=== PATIENT | female | born 1985 | race Caucasian/White ===

== ENCOUNTER 2023-06-14 08:52 | Emergency (ER) | payer OTHER, SELFPAY ==
--- NOTE | ~2023-06-14 | CT_ITS ---
EXAMINATION: CT LUMBAR SPINE CLINICAL INFORMATION: Urinary retention. Low back pain. Left lower extremity numbness. COMPARISON: None available. TECHNIQUE: Contiguous axial noncontrast CT scan images of the lumbar spine obtained. Sagittal and coronal reformatted images also obtained. This CT examination was performed using dose optimization techniques as appropriate, variously including the following: *Automated exposure control *Adjustment of mA and/or kV according to patient size (this includes techniques or standardized protocols for targeted exams where dose is matched to indication/reason for exam; i.e. extremities or head) *Use of iterative reconstruction technique DLP: 275 mGy-cm FINDINGS: The vertebral bodies are normally aligned. The bone mineralization is normal. There is no fracture. There is an apparent large left sided L5-S1 disc protrusion/herniation likely displacing the S1 nerve root with moderate left neuroforaminal narrowing encroaching on the L5 nerve root. The remaining disc levels are within normal limits. The soft tissues are unremarkable. The visualized intra-abdominal structures are unremarkable. There is free fluid within the pelvis. CT/CT lumbar spine w IV con IMPRESSION: Large left-sided L5-S1 disc protrusion/herniation likely displacing the S1 nerve root and encroaching on the L5 nerve root. Free fluid within the pelvis of uncertain significance.
--- NOTE | ~2023-06-14 | CT_ITS ---
EXAMINATION: CT CERVICAL SPINE WITHOUT CONTRAST CLINICAL INFORMATION: Tingling down left upper extremity. COMPARISON: None available. TECHNIQUE: Contiguous axial noncontrast CT scan images of the cervical spine obtained. Sagittal and coronal reformatted images also obtained. This CT examination was performed using dose optimization techniques as appropriate, variously including the following: *Automated exposure control *Adjustment of mA and/or kV according to patient size (this includes techniques or standardized protocols for targeted exams where dose is matched to indication/reason for exam; i.e. extremities or head) *Use of iterative reconstruction technique DLP: 259 mGy-cm FINDINGS: There is straightening of the expected cervical spine curvature. The disc spaces are maintained. The spinal canal and neuroforamina are patent. The bone mineralization is normal. There is no fracture. Soft tissues are unremarkable. The visualized upper lung butler are clear. CT/CT cervical spine wo IV con IMPRESSION: Straightening of the expected cervical spine curvature of uncertain significance. No other significant abnormality identified. Fleischner guidelines were followed.
[2023-06-14 09:24] VITALS: BP 95/64; PULSE 83; RESP 18; TEMP 36; O2SAT 100; BMI 22.5
[2023-06-14 10:24] LABS: MANUAL DIFF FLAG NO
[2023-06-14 10:28] LABS: Basophils Percent Auto 0.2 % (0-2); Eosinophils Absolute Auto 0.1 X10*3/uL (0.0-0.4); Eosinophils Percent Auto 1.5 % (0-4); Hematocrit 40.1 % (37.0-47.0); Imm Gran Abs Auto 0.01 X10*3/uL (0.00-0.03); Imm Gran Pct Auto 0.2 % (0.0-0.4); Lymphocytes Percent Auto 20.9 % (20-40); Mean Corpuscular HGB Conc 32.4 g/dl (31.0-35.0); Mean Corpuscular Hemoglobin 30.4 pg (27.0-33.0); Mean Corpuscular Volume 93.9 fL (80.0-98.0); Mean Platelet Volume 10.1 fL (9.4-12.3); Monocytes Absolute Auto 0.3 X10*3/uL (0.1-1.2); Monocytes Percent Auto 6.3 % (2-11); Neutrophils Absolute Auto 3.4 x10*3/uL (2.0-8.3); Neutrophils Percent Auto 70.9 % (45-73); Platelet Count 226 X10*3/uL (160-400); Red Blood Count 4.27 X10*6/uL (4.20-5.50); Red Cell Distribution Width 11.3 % (11.0-16.0); White Blood Count 4.8 X10*3/uL (4.8-10.8)
--- NOTE | 2023-06-14 10:35 | ED.GENADULT ---
HPI - General Adult General Chief complaint: General Medical Stated complaint: Numbness & pain left leg Time Seen by Provider: 06/14/23 09:57 Source: patient Mode of arrival: ambulatory Limitations: no limitations History of Present Illness HPI narrative: 37 year old female with pmhx significant for hip dysplasia, L5-S1 disc herniation, and chronic low back pain presents to the ED today with complaint of acute on chronic low back pain x4 days. Back pain to left lumbar area with radiation into the lateral left thigh extending to the toes. Pain is exacerbated with movement. She now reports numbness down her left leg that was not present prior to 4 days ago. Able to ambulate with slight limp. Admits to receiving corticosteroid injections for this in the past however these were discontinued some time ago. Endorses slight tingling sensation down LUE that began this morning along with difficulty urinating x 2 days. States it takes her a while to initiate urine stream however is eventually able to urine. Denies feeling of incomplete bladder emptying. Denies ivdu. Denies trauma/injury/fall. Denies fever, chills, HERRERA, neck pain, cp, sob, n/v, abd pain, flank pain, dysuria, hematuria, weakness of extremities, saddle anesthesia, Related Data Previous Rx's Medication Instructions Recorded lidocaine 5 % topical patch 1 patch topical DAILY #15 ea 06/14/23 (Lidoderm) prednisone 50 mg tablet 50 mg PO DAILY 5 days #5 tabs 06/14/23 Allergies Allergy/AdvReac Type Severity Reaction Status Date / Time No Known Allergies Allergy Verified 06/14/23 10:46 Review of Systems Review of Systems: Constitutional: No fever, chills, fatigue, night sweats, weight changes ENT/Mouth: No ear pain, hearing loss, nasal congestion, sinus pain, rhinorrhea, sore throat Eyes: No eye pain, swelling, redness, vision changes, discharge Cardio: No chest pain, palpitations, TAMAYO, orthopnea, peripheral edema Pulm: No SOB, cough, sputum, wheezing, dyspnea, hemoptysis GI: No nausea, vomiting, hematemesis, abdominal pain, diarrhea, constipation, hematochezia, melena : No irregular bleeding, dysuria, frequency, urgency, hesitancy, hematuria, flank pain, urinary flow changes, urinary incontinence or retention MSK: +back pain, No neck pain, joint pain, myalgias Skin: No lesions, rashes Neuro: No weakness, +numbness, No paresthesias, LOC, dizziness, headache All other systems reviewed and are negative. FORMERLY [facility], 1928–1983 Past Medical History Attestation statement: The following information was validated with the patient. Source: old records reviewed and nursing notes reviewed Social History Social History Advance Directives: No Physical Exam ED Vital Signs: Vital Signs - 24 hr 06/14/23 14:49 Temperature 98.7 F Pulse Rate 76 Respiratory Rate 14 Blood Pressure 94/59 L Pulse Oximetry 99 Oxygen Delivery Method Room Air BMI result Body Mass Index 22.5 vital signs stable Const General: cooperative, healthy appearing, comfortable, no acute distress, alert and awake Orientation/consciousness: patient oriented x3 Limitations: no limitations HENMT Head: Yes normal to inspection Ears: hearing grossly normal bilaterally Eyes General: appearance normal, both eyes and all related structures Conjunctivae: conjunctivae normal Sclerae: sclerae normal Pupils: Equal, round and reactive pupils present Neck Neck: Yes normal visual inspection, Yes full ROM, Yes no lymphadenopathy and Yes no meningeal signs Resp Effort & Inspection: normal respiratory effort and able to speak in complete sentences Auscultation: clear to auscultation bilaterally Cardio Rate: regular rate Rhythm: regular rhythm Peripheral pulses: radial pulses present, posterior tibial pulses present and dorsalis pedis present GI Other: + rectal exam performed with Oly RN in room to building operator. Normal rectal sphincter tone noted Inspection: Yes normal to inspection Palpation (GI): Soft to palpation, nontender and no guarding Auscultation: normal bowel sounds General: Yes no CVA tenderness Back/Spine/Pelvis Other: + midline lumbar spinous tenderness. + left lumbar paraspinal muscle tenderness. no step off deformity. No midline cervical or thoracic spinous tenderness. Back: no CVA tenderness Skin General skin exam: no rashes or lesions noted Neuro Other: Strength 5/5 intact to RLE, 4/5 to LLE.? No saddle anesthesia. Sensation intact to light touch.?NV intact distally.?Gait antalgic secondary to discomfort. General: patient oriented x3, moves all extremities and no meningeal signs Cranial nerves: Yes Equal, round and reactive pupils present Deep tendon reflexes (DTR's): Right patellar reflex intensity grade: 2+ and Left patellar reflex intensity grade: 2+ Plantar Reflex Responses: downgoing: bilateral Extrem Other: + full rom intact to right and left hips. General: Yes normal to inspection and Yes full ROM Course Course Course Narrative: cbc without leukocytosis or anemia > infection unlikely. chemistry without acute electrolyte abnormality requiring intervention. sed rate and crp wnl. Urine negative for or infection. awaiting ct. 1516-- ct cervical spine unremarkable. ct lumbar spine showing left sided L5-S1 disc protrusion/ herniation w/ possible displacement of the S1 nerve root, encroaching on the L5 nerve root. > discussed these findings with patient. states she is aware of this and has seen specialists in the past for injections. > obtained patient's verbal consent and rectal exam performed with Oly RN in room to building operator. Normal rectal sphincter tone noted > less likely cauda equina. 1543-- post void residual of 0 > no urinary retention supporting low suspicion of cauda equina. Discussed case with my attending physician, Dr. Dumont, who agrees that the patient may be discharged home with a 5 day course of prednisone and strict neurospine follow-up > referral will be provided. > informed patient of work up results and plan. Patient is ambulating with steady gait. Has urinated without difficulty in ED. She has remained stable throughout ED visit today. Discussed strict return precautions. All questions answered at this time. Patient is agreeable with disposition and stable for discharge. Medications Administered Discontinued Medications Generic Name Dose Route Start Last Admin Trade Name Freq PRN Reason Stop Dose Admin Iohexol 100 ml 06/14/23 13:37 06/14/23 13:37 Iohexol 350 Mg/Ml 100 Ml Infus..Btl IV 06/14/23 13:38 85 ml ONCE ONE Administration Lidocaine 1 patch 06/14/23 10:51 06/14/23 13:02 Lidocaine 4 % Patch Adh..Patch TRANSDERMA 06/14/23 10:52 1 patch ONCE ONE Administration Protocol Medical Decision Making Medical Decision Making MDM Narrative: 37 year old female with pmhx significant for hip dysplasia, L5-S1 disc herniation, and chronic low back pain presents to the ED today with complaint of acute on chronic low back pain x4 days. Vital signs are stable. BP soft however she is sleeping in bed. Nontoxic appearing and in NAD. no CVAT b/l. midline lumbar spinous tenderness and left lumbar paraspinal muscle tenderness. no step off deformity. No midline cervical or thoracic spinous tenderness. full rom to spine intact. Strength 5/5 intact to RLE, 4/5 to LLE.? No saddle anesthesia. Sensation intact to light touch.?NV intact distally.?Gait antalgic secondary to discomfort. Clinical concern for disc herniation/protrusion, fracture, subluxation, msk sprain/strain, cervical radiculopathy, sciatica, neuropathy, UTI, nephrolithiasis. Unlikely cord compression, cauda equina, or epidural abscess. Plan for basic labs, inflammatory markers, UA, pain control, ct scans, and reevaluation. Differential Diagnosis Differential Diagnoses: The differential diagnosis associated with the presentation includes As above. Admission/Observation Not indicated. Lab Data MDM Lab Attestation statement: I reviewed the patient's lab results. as above. 06/14/23 10:20 06/14/23 10:20 Labs: Lab Results 06/14/23 06/14/23 Range/Units 10:20 10:38 WBC 4.8 (4.8-10.8) X10*3/uL RBC 4.27 (4.20-5.50) X10*6/uL Hgb 13.0 (12.0-16.0) g/dl Hct 40.1 (37.0-47.0) % MCV 93.9 (80.0-98.0) fL MCH 30.4 (27.0-33.0) pg MCHC 32.4 (31.0-35.0) g/dl RDW 11.3 (11.0-16.0) % Plt Count 226 (160-400) X10*3/uL MPV 10.1 (9.4-12.3) fL Immature Gran % (Auto) 0.2 (0.0-0.4) % Neut % (Auto) 70.9 (45-73) % Lymph % (Auto) 20.9 (20-40) % [place] % (Auto) 6.3 (2-11) % Eos % (Auto) 1.5 (0-4) % Baso % (Auto) 0.2 (0-2) % Lymph # (Auto) 1.0 L (1.2-4.9) X10*3/uL [place] # (Auto) 0.3 (0.1-1.2) X10*3/uL Eos # (Auto) 0.1 (0.0-0.4) X10*3/uL Baso # (Auto) 0.0 (0.0-0.2) X10*3/uL Abs Immat Gran (auto) 0.01 (0.00-0.03) X10*3/uL Absolute Neuts (auto) 3.4 (2.0-8.3) x10*3/uL Absolute Nucleated RBC 0.000 (0.0-0.012) X10*3/uL Nucleated RBC % (auto) 0.0 (0.0-0.2) /100WBC ESR 8 (0-20) MM/HR Sodium 139 (135-145) mmol/L Potassium 3.8 (3.3-5.1) mmol/L Chloride 107 (96-108) mmol/L Carbon Dioxide 25 (22-29) mmol/L Anion Gap 11 L (12-20) BUN 11 (9-16) mg/dL Creatinine 0.73 (0.5-1.4) mg/dL Estim Creat Clear Calc 85.0 Estimated GFR > 60 Random Glucose 69 (60-115) mg/dL Calcium 9.0 (8.4-10.2) mg/dL C-Reactive Protein < 0.10 (< or = 0.50) mg/dL Urine Color Yellow Urine Appearance Clear Urine pH 6.5 (5.0-9.0) Ur Specific [place] 1.015 (1.005-1.025) Urine Protein Negative (Neg-Trace) mg/dL Urine Glucose (UA) Negative (Negative) mg/dL Urine Ketones Negative (Negative) mg/dL Urine Blood Negative (Negative) Urine Nitrite Negative (Negative) Ur Leukocyte Esterase Trace H (Negative) Urine RBC 0-2 (0-2) /HPF Urine WBC 11-20 H (0-5) /HPF Ur Squamous Epith Cells 6-10 (0-2) /HPF Urine Bacteria None Seen (None Seen) Hyaline Casts 0-2 (0-2) /LPF Urine Test NEGATIVE (NEGATIVE) Independent Interpretation I performed an independent interpretation of an: CT Scan Interpretation: CT c spine without fracture or subluxation, agree with radiologist's interpretation. CT lumbar spine without acute fracture, agree with radiologist's interpretation. Radiology Impression Discussion of test interpretation with radiology: I have reviewed the radiologist's reading. Radiologist Impression: CT cervical spine wo IV con IMPRESSION: Straightening of the expected cervical spine curvature of uncertain significance. No other significant abnormality identified. Fleischner guidelines were followed. CT lumbar spine w IV con IMPRESSION: Large left-sided L5-S1 disc protrusion/herniation likely displacing the S1 nerve root and encroaching on the L5 nerve root. Free fluid within the pelvis of uncertain significance. External Record Review External record reviewed: Inpatient record Prescription Management I considered prescription management with: Pain Medication Chronic Conditions Patient?s care impacted by: Other (herniated disc) Critical Care Time Critical Care Time Critical Care Time: No Discharge Plan Discharge Clinical Impression: Lumbosacral disc herniation Patient Disposition: Home, Self-Care Instructions: Acute Low Back Pain (ED) Additional Instructions: Your labs today were normal. Your urine was negative for infection and . The CT of your neck did not reveal any fracture or disc herniation. The CT of your lower back shows known disc herniation of the L5 and S1 vertebra with encroachment on the left nerve root. Prednisone is a steroid that has been sent to her pharmacy. Take this as directed over the next 5 days to help with pain/inflammation. You have been given a referral to a spine doctor. Call them to make an appointment they will not call you. Lidoderm patches have been sent to your pharmacy. Uses as needed for pain/discomfort. Follow-up with your PCP as needed. If you develop worsening symptoms, have difficulty walking, are unable to control your bowel or bladder, or if you are unable to urinate please return to the emergency department. In the case of an emergency call 911. Prescriptions: New lidocaine [Lidoderm] 5 % adhesive patch,medicated 1 patch topical DAILY Qty: 15 0RF Rx Instructions: leave on most painful area for up to 12 hrs prednisone 50 mg tablet 50 mg PO DAILY 5 Days Qty: 5 0RF Referrals: Jaxon Rivera MD, PhD [Physician] - 5 days Stand Alone Forms: Work/School Release Interventions: ED Discharge Assessment Last Done: 06/14/23 15:55 Discharge Date/Time: 06/14/23 16:01
[2023-06-14 10:44] LABS: Anion Gap 11 (12-20); Blood Urea Nitrogen 11 mg/dL (9-16); Carbon Dioxide 25 mmol/L (22-29); Chloride 107 mmol/L (96-108); Estimated Glomerular Filt Rate > 60; Glucose Random 69 mg/dL (60-115); Potassium 3.8 mmol/L (3.3-5.1); Sodium 139 mmol/L (135-145)
[2023-06-14 11:01] LABS: Appearance Urine Clear; Color Urine Yellow; Glucose Urine UA Negative (Negative); Leukocyte Esterase Urine Trace (Negative); Nitrite Urine Negative (Negative); PH 6.5 (5.0-9.0); Specific Gravity - Urine 1.015 (1.005-1.025); UMIC TRIGGER UACC YES; Urine Blood Negative (Negative); Urine Ketones Negative (Negative); Urine Protein Negative (Neg-Trace)
[2023-06-14 11:02] LABS: UPreg QC Valid YES; Urine Pregnancy NEGATIVE (NEGATIVE)
[2023-06-14 11:06] LABS: Bacteria Urine None Seen (None Seen); Hyaline Casts Urine 0-2 /LPF (0-2); RBC Urine 0-2 /HPF (0-2); UACC Culture Trigger YES
[2023-06-14 11:26] LABS: C Reactive Protein < 0.10 mg/dL (< or = 0.50)
[2023-06-14 11:57] LABS: Erythrocyte Sedimentation Rate 8 MM/HR (0-20)
[2023-06-14 12:43] VITALS: BP 114/82; PULSE 64; RESP 14; TEMP 36.7; O2SAT 96
--- NOTE | 2023-06-14 12:44 | PC.NURSE ---
Patient resting on stretcher, respirations even and unlabored, skin pwd, alert and oriented x4. Pt verbalizes lower back pain continuing with no change in pain. Awaiting CT scan at this time, this RN placed 20g IV in LAC
[2023-06-14] MEDS: Lidocaine 4 % Patch ADH..PATCH 1 PATCH TRANSDERMA (13:02)
[2023-06-14] MEDS: iohexoL 350 MG/ML 100 ML INFUS..BTL IV (13:37)
--- NOTE | 2023-06-14 14:35 | PC.NURSE ---
Patient back from CT, resting comfortably on stretcher, offers no complaints to this RN at this time
[2023-06-14 14:49] VITALS: BP 94/59; PULSE 76; RESP 14; TEMP 37.1; O2SAT 99
--- NOTE | 2023-06-14 15:23 | PC.NURSE ---
Post void residual zero on bladder scan.
== END 2023-06-14 16:01 | disposition home or self-care (01) ==
PROVIDERS: Physician Assistant Medical; Emergency Provider Emergency Medicine Emergency Medical Services; PCP Internal Medicine
DX: K45.8 Other specified abdominal hernia without obstruction or gangrene (principal); R33.9 Retention of urine, unspecified; R20.0 Anesthesia of skin; M79.605 Pain in left leg; M54.50 Low back pain, unspecified; R51.9 Headache, unspecified; M54.2 Cervicalgia; Z79.899 Other long term (current) drug therapy
CPT/HCPCS: 36415; 51798; 72125; 72132; 80048; 81001; 81003; 81025; 85025; 85652; 86140; 87086; 87088; 87186; 99284; Q9967

== ENCOUNTER 2023-06-17 13:16 | Outpatient (AMB) | payer OTHER, SELFPAY ==
--- NOTE | 2023-06-17 13:39 | A.OFFVIS_ITS ---
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 Jung in follow-up today. She was in the emergency room 2 days ago. She is a patient who has been having on and off pain for the last 4-5 weeks going down her left leg but 2 days ago she fell an abrupt increase in the intensity of the pain. The pain was so severe that she has fallen a few times because she has been unable to stand or walk on her left leg. The pain radiates down the back of her leg into her calf going into her foot. She has weakness of her foot as well. There is tingling and numbness along the dorsum of the foot. No cauda equina symptoms. She has been tried on steroids, low-grade narcotics, muscle relaxers, ibuprofen, Tylenol with no significant improvement. She had been going to physical therapy before this recent flare up but it was not helping. She underwent a CT in the emergency room the other day showing what is suspected to be a herniated disc on the left at L5-S1. She came in to see us today with an urgent consultation. PMH: She is otherwise healthy Social hx: She does not smoke, drink alcohol or use drugs Medications: She has been on prednisone taper but has recently stopped that, Tylenol, ibuprofen Allergies: No drug allergies Physical exam: She has positive straight leg raise at about 10-15 degrees. She is very uncomfortable limping through the office grimacing with pain. She cannot sit on her left side. She has significant weakness of dorsiflexion and plantar flexion with an absent Achilles reflex on the left. Imaging review: Lumbar CT done at [place] shows what looks like a herniated disc fragment on the left at L5-S1. Impression: 37-year-old female presents with a 4-5 week history of left lumbar radiculopathy consistent with either L5 or S1 dermatome, who had a recent flare up 2 days ago with severe pain and what looks like a large herniated disc fragment in the lateral recess at L5-S1. She has weakness of her left foot as well as an absent Achilles reflex. She has been trying conservative treatment up to this point but obviously things are only escalating. I am going to send her for stat MRI because of the weakness of her foot in the absent reflex. Also, the MRI will give us a little more detail to help us intraoperatively. Cannot see if any of the fragment extends up behind the body of L5 or into the foramen. The limitations of CT necessitate the MRI. We will look at the MRI soon as it is done and coordinate for surgery. We briefly reviewed surgical indications, risks, benefits etc.. We will have a more detailed conversation once I have a chance to review her MRI with Dr. Rivera. Thank you for allowing us to care for your patient. The total time spent with this visit with this patient was 45 minutes reviewing history, physical exam, lumbar CT imaging review, and implementation of treatment plan or further diagnostic testing Niko Rivera MD,PhD [facility] Orders: Orders MR lumbar spine wo con Today M51.26 - Other intervertebral disc displacement, lumbar region Coding Level of Care Code New Pt Level 4 (95008) Diagnoses Lumbar disc herniation M51.26
== END 2023-06-17 14:03 | disposition home or self-care (01) ==
PROVIDERS: PCP Internal Medicine; Visit Provider Physician Assistant
DX: M51.26 Other intervertebral disc displacement, lumbar region (principal)
CPT/HCPCS: 99204

== ENCOUNTER → 2023-06-17 13:16 | Outpatient (BNVA) | payer OTHER, SELFPAY | PROVIDERS: PCP Internal Medicine; Visit Provider Physician Assistant | DX: M51.26 Other intervertebral disc displacement, lumbar region (principal) | CPT/HCPCS: 99202 ==

== ENCOUNTER 2023-07-07 08:58 | Day surgery (SDC) | payer OTHER, SELFPAY ==
[2023-06-28 11:09] VITALS: BMI 21.6
--- NOTE | 2023-06-30 12:13 | P.CONAN_ITS ---
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 (HPV) DNA test positive Intractable headache Lumbosacral radiculopathy Abnormal liver function tests Hydronephrosis Elevated LFTs Pyelonephritis Back pain Hx of transfusion of packed red blood cells Seizures Sepsis COVID-19 Jaundice Anemia G6P deficiency ([id number] deficiency) Numbness Surgical History Surgical History History of tubal ligation Hx of gynecological procedure Hx of section Social History Social History Are you a primary resident care assistant to a significant other at home: Yes Do you presently have visiting nurse or other home services: No Patient Tobacco Use Status: Never used Tobacco Meds Allergies Allergy/AdvReac Type Severity Reaction Status Date / Time doxycycline Allergy Unknown Verified 06/29/23 08:05 latex Allergy Rash Verified 06/28/23 10:33 Penicillins Allergy Unknown Verified 06/29/23 06:41 Exam Height,Weight and Vital Signs: Height 5 ft 2 in Weight 53.524 kg Pertinent Lab Results Pertinent Lab Results: Laboratory Tests 06/14/23 10:20 WBC 4.8 Hgb 13.0 Hct 40.1 Plt Count 226 Sodium 139 Potassium 3.8 Chloride 107 Carbon Dioxide 25 BUN 11 Creatinine 0.73 Assessment and Plan Assessment Anesthesia Assessment: Chart Reviewed Creatinine 0.73 Assessment and Plan Assessment Anesthesia Assessment: Chart Reviewed
[2023-07-07] VITALS (10 sets, daily range): BP systolic 94–115; BP diastolic 62–72; PULSE 64–88; RESP 12–16; TEMP 36.2–36.6; O2SAT 96–100; BMI 21.9
--- NOTE | ~2023-07-07 | FL_ITS ---
EXAMINATION: XR FLUOROSCOPY WITH IMAGES CLINICAL INFORMATION: L5-S1 microlumbar decompression. COMPARISON: None available. TECHNIQUE: Fluoroscopy Supervised By: Dr. Jaxon Rivera. Fluoroscopy Time: Less than 0.1 minute. Cumulative Dose: 0.919 mGy. DAP: 0.0159 Gycm2. Images: 1. FINDINGS: Single lateral image of lumbar spine demonstrate surgical instruments and probe projecting over the posterior lower lumbar spine FL/FL guidance in OR IMPRESSION: Fluoroscopy guidance for lumbar spine surgery.
--- NOTE | 2023-07-07 07:26 | MHC.SHP ---
Pre-Procedural Eval Section A Date of Service: 07/07/23 The patient is an INPATIENT: No Changes since office visit: No Cold of Flu in the past 2 weeks, No New Medical Problems, No Changes in Medication and No Patient answered all questions The History & Physical has been completed within 30 days and I have reviewed it.: No Section B Chief Complaint: Other intervertebral disc displacement, lumbar reg Allergies: Allergies Allergy/AdvReac Type Severity Reaction Status Date / Time doxycycline Allergy Unknown Verified 06/29/23 08:05 latex Allergy Rash Verified 06/28/23 10:33 Penicillins Allergy Unknown Verified 06/29/23 06:41 Review of Systems Sugical H&P ROS: Negative: Constitution, Cardiovascular, Respiratory, Neurological, Psychiatric, Hem-Onc, Allergic/Immunologic, Gastrointestinal, Genitourinary, Musculoskeletal, Integumentary, Endocrine and Eyes/Ears/Nose/Throat Exam Surgical H&P Exam: Not Evaluated: HEENT, Not Evaluated: Heart, Not Evaluated: Lungs, Not Evaluated: Extremities, Not Evaluated: Abdomen, Not Evaluated: Skin and Not Evaluated: Neurological Plan Diagnosis/Plan: Unchanged left L5-S1 microdiskectomy Time Spent With Patient Time: Total time managing care of this patient today __6__ minutes.
--- NOTE | 2023-07-07 10:11 | PC.NURSE ---
patient started to c/o itching to left arm above IV site, and scratching scalp. IV vancomycin stopped. Dr. Pacheco notified and at bedside. all consents obtained. Benadryl 25mg IV given as ordered.
--- NOTE | 2023-07-07 10:14 | HO.ANESPROP2 ---
[facility] Active Problems Active Problems: All Active Problems (Updated 06/29/23 @ 08:04 by Tressa Castaneda RN) Lumbar disc herniation (Acute) Past Medical History Medical History Cervical high risk human papillomavirus (HPV) DNA test positive Intractable headache Lumbosacral radiculopathy Abnormal liver function tests Hydronephrosis Elevated LFTs Pyelonephritis Back pain Hx of transfusion of packed red blood cells Seizures Sepsis COVID-19 Jaundice Anemia G6P deficiency (owerief-5-yolcwzaykwj deficiency) Numbness Functional capacity: independent ambulation Patient : No Family History Family history of problems with anesthesia: No Surgical History Surgical History History of tubal ligation Hx of gynecological procedure Hx of section History of Problems with Anesthesia: No Social History Social History Are you a primary health care attorney to a significant other at home: Yes Do you presently have visiting nurse or other home services: No Patient Tobacco Use Status: Never used Tobacco Use of substances other than those prescribed or required for medical reasons: No Advance Directives: No Advance Directives Information Provided: Yes Advance Directives on File: No Recently lost weight without trying: No Eating poorly because of decreased appetite: No Nutrition Risks: No Nutritional Risk Patient : No : No Poor oral hygiene: No Meds Allergies Allergy/AdvReac Type Severity Reaction Status Date / Time doxycycline Allergy Unknown Verified 06/29/23 08:05 latex Allergy Rash Verified 06/28/23 10:33 Penicillins Allergy Unknown Verified 06/29/23 06:41 Active Medications: Current Medications Vancomycin HCl 1,000 mg/ (Sodium Chloride) 270 mls @ 270 mls/hr IV PREOP ONE Stop: 07/07/23 10:15 Last Admin: 07/07/23 09:47 Dose: 270 mls/hr Exam Height,Weight and Vital Signs: Height 5 ft 2 in Weight 54.431 kg Last Vital Signs Temp 97.9 F 07/07/23 09:42 Pulse 77 07/07/23 09:42 Resp 16 07/07/23 09:42 BP 94/70 07/07/23 09:42 Pulse Ox 98 07/07/23 09:42 O2 Del Method Room Air 07/07/23 09:42 Airway Mallampati Class: I TM Dist: >3cm Neck ROM: Full Heart: RRR Lungs: CTA Assessment and Plan Assessment Anesthesia Assessment: Anesthesia Plan Discussed Final Anesthetic Review Family History of Problems with Anesthesia: No History of Problems with Anesthesia: No NPO: Yes ASA Class: II Final Preanesthetic Review: Meds/Allgs Chart Reviewed, Consent Obtained/Reviewed and Anes Risks/Benef Reviewed Patient Risk: Intermediate Procedure Risk: Intermediate Anesthetic Plan Anesthetic Plan: GA Disposition: Standard PACU
--- NOTE | 2023-07-07 11:40 | W.PM.OPN ---
Operative Note Operative Note Date of Service: 07/07/23 Narrative: Preoperative diagnosis: left S1 lumbar radiculopathy due to disc herniation Postoperative diagnosis: Same Procedure: left L5-S1 lumbar microdiskectomy with microscope Surgeon: Jaxon Rivera MD, PhD Senior Property Accountant: [place] patient's suffer from left leg pain and numbness due to a large extruded disc herniation L5-S1 compressing the left S1 nerve root. The patient was offered a lumbar microdiskectomy to decompress the nerve root. The procedure complications were explained. The patient was consented. The patient was brought to the operating room and endotracheally intubated. The patient was turned in a prone position on the Mundo frame. Prepping and draping was done followed by time-out. A mid lumbar incision was made followed by release of the paravertebral muscles on the left side to expose the L5-S1 interspace. An intraoperative x-rays obtained to confirm the correct level. The microscope was brought in. A L5 laminotomy was done followed by opening of the flavum ligament. The S1 nerve root was identified and retracted medially to expose the L5-S1 disc space. I could palpate a disc herniation medial from the S1 nerve root. An annulotomy was done and with a long therefore I was able to luxate and 1 over a very large disc fragment from on the day thecal sac and medial side of the S1 nerve root. This immediately led to a good decompression of the S1 nerve root.The disc space was inspected and any residual disc fragments were removed. Hemostasis was done. The microscope was removed. Marcaine was injected intramuscularly.The incision was closed in two layers. Steri-Strips used to approximate seizure. An op-site were taken there was used to cover the incision. All sponge and needle counts were correct. Patient was extubated and transported in stable condition to recovery room. this procedure was done with the aid of a physician metallurgical laboratory assistant who performed the initial exposure until the microscope was brought in and performed the closure of the incision. Anesthesia: General Blood loss: 10 mL Complications: None Specimen: None Surgical time: 45 min Disposition: Discharge home
--- NOTE | 2023-07-07 11:50 | PM.DS ---
DS: Providers Provider Date of Service: 07/07/23 Date of discharge: 07/07/23 Primary care physician: Darling Egan MD Admitting clinician: Jaxon Rivera DS: Diagnosis Discharge Diagnosis (1) Lumbar disc herniation: Status: Acute DS: Summary Time Attestation Discharge coordination time: Less than 30 minutes Quality: Safe Use of Opioids Does Pt have an Active Cancer Diagnosis on the Problem List?: No Quality: Stroke Does the patient have a stroke diagnosis?: No Physical Exam Vital Signs: Vital Signs: Last Vital Signs Temp 97.9 F 07/07/23 09:42 Pulse 77 07/07/23 09:42 Resp 16 07/07/23 09:42 BP 94/70 07/07/23 09:42 Pulse Ox 98 07/07/23 09:42 O2 Del Method Room Air 07/07/23 09:42 BMI result Body Mass Index 21.9 Discharge Plan Discharge Patient Disposition: Home, Self-Care Referrals: Darling Egan MD [Primary Care Provider] - 1 Week Discharge Medications: New oxycodone 5 mg tablet 5 mg PO Q4H PRN (Reason: pain) Qty: 20 0RF Rx Instructions: Partial Fill upon patient request. docusate sodium [Colace] 100 mg capsule 100 mg PO BID Qty: 20 0RF No Action lidocaine [Lidoderm] 5 % adhesive patch,medicated 1 patch topical DAILY Qty: 15 0RF Rx Instructions: leave on most painful area for up to 12 hrs Discharge Orders: Discharge Order (Routine); Ordered 07/07/23 Ordered By: Niko Treviño Diet: Advance to usual diet Activity on Discharge: As tolerated Activity Restrictions/Additional Instructions: After your spinal surgery we ask you to observe the following restrictions/guidelines: Activity: It is normal to feel some discomfort as you increase your activity, but that will improve with time. We ask you avoid heavy lifting or acitivities that cause pain. As a general rule, 8lbs is a safe limit for lifting right after surgery. Walk as much as you feel comfortable but not to exhaustion. You will feel extra tired the first few days after surgery. Stay well hydrated. It is OK to walk up and down stairs You may return to driving when you are off narcotics (such as vicodin, oxycodone, dilaudid, etc), and you are back to normal functional capacity. If you have any concerns please check with office before driving. Return to work is specific to each patient and each surgery, so please speak with your doctor/PA at first follow up. Please bring paperwork such as FMLA at that time if you need it filled out. Medications: For optimum pain control, it is best to start with a combination of 500 mg of Tylenol every 4 hours with 600 mg of Motrin every 8 hours, and use narcotics as needed in between for breakthrough pain. We will give you a short supply of narcotics after surgery (usually one weeks worth). If you need more please call the office but do not use more than prescribed. You will need to give our office 48 hours notice if you need narcotics refilled and we do not fill narcotics on weekends or evenings. If you are on a narcotic, it is a good idea to take a stool softener such as colace or senna to avoid constipation If you take blood thinner such as aspirin, Plavix, Coumadin, Effient, Eliquis etc for conditions such as Afib, DVT, Pulmonary embolus, coronary disease, stents etc please speak with your surgeon about specific details as to when you can resume these medications. You can resume NSAIDs on post op day 1 (eg: Motrin, Naproxen, etc). Follow up: Please call the office, , after surgery to arrange a 3 week follow up for wound check. Wound Care: You may remove your dressing on the first day after surgery. You may leave open to air. Please do not remove the steri strips underneath. they will fall off on their own in one week. IT IS NORMAL FOR THE WOUND TO OOZE OR BE BLOODY FOR A FEW DAYS AFTER SURGERY. IF THIS HAPPENS JUST PLACE NEW DRESSING OVER IT TO AVOID STAINING CLOTHES. You may shower on post op day # 1 We ask that you do not let the water soak the wound. If it does get wet, just towel dry lightly. Please do not scrub your incision or place any type of chemical/ointment on the wound. No tub baths, pools or jacuzzis for one month. If you have any leaking or redness from your wound, or fevers, please call office
== END 2023-07-07 14:15 | disposition home or self-care (01) ==
PROVIDERS: PCP Internal Medicine; Visit Provider Neurological Surgery
PROC: (CPT 63030; principal; 2023-07-07 15:40)
DX: M51.26 Other intervertebral disc displacement, lumbar region (principal); M51.16 Intervertebral disc disorders with radiculopathy, lumbar region; M79.605 Pain in left leg; R20.0 Anesthesia of skin; R20.2 Paresthesia of skin
CPT/HCPCS: 63030; J0131; J0736; J1100; J1200; J1596; J2250; J2405; J2704; J3010; J3370

== ENCOUNTER → 2023-07-07 08:58 | Outpatient (BNV) | payer OTHER, SELFPAY | PROVIDERS: PCP Internal Medicine; Visit Provider Neurological Surgery | DX: M51.26 Other intervertebral disc displacement, lumbar region (principal) | CPT/HCPCS: 63030; 99499 ==

== ENCOUNTER 2023-08-02 15:24 | Outpatient (AMB) | payer OTHER, SELFPAY ==
--- NOTE | 2023-08-02 15:29 | MHC.OFFVIS ---
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 Allergies doxycycline Allergy (Verified 06/29/23 08:05) Unknown latex Allergy (Verified 06/28/23 10:33) Rash Penicillins Allergy (Verified 06/29/23 06:41) Unknown PFSH Medical History Cervical high risk human papillomavirus (HPV) DNA test positive Intractable headache Lumbosacral radiculopathy Abnormal liver function tests Hydronephrosis Elevated LFTs Pyelonephritis Back pain Hx of transfusion of packed red blood cells Seizures Sepsis COVID-19 Jaundice Anemia G6P deficiency (avtlqnr-3-fqidgtfjbrz deficiency) Numbness Surgical History History of tubal ligation Hx of gynecological procedure Hx of section Social History Are you a primary laboratory animal care veterinarian to a significant other at home: Yes Do you presently have visiting nurse or other home services: No Patient Tobacco Use Status: Never used Tobacco Assessment & Plan Assessment & Plan (1) Lumbar disc herniation: Code(s): M51.26 - Other intervertebral disc displacement, lumbar region Plan Mrs. Jung is about 1 month out from her left L5-S1 microdiskectomy. Overall she is doing great, for the moment she woke up in the recovery room she was able to feel her toes and move her foot. His strength is back to normal. She is doing some light activities but no heavy lifting as instructed. Her wound is healing up well. We discussed activity guidelines, restrictions and expectations after lumbar microdiskectomy. The patient will come back to see us down the road if something changes. Niko Rivera MD, PhD [facility] Coding Level of Care Code Global (33578) Diagnoses Lumbar disc herniation M51.26
== END 2023-08-02 15:40 | disposition home or self-care (01) ==
PROVIDERS: PCP Internal Medicine; Visit Provider Physician Assistant
DX: M51.26 Other intervertebral disc displacement, lumbar region (principal)
CPT/HCPCS: 99024

== ENCOUNTER → 2023-08-02 15:24 | Outpatient (BNVA) | payer OTHER, SELFPAY | PROVIDERS: PCP Internal Medicine; Visit Provider Physician Assistant | DX: M51.26 Other intervertebral disc displacement, lumbar region (principal); Z98.890 Other specified postprocedural states | CPT/HCPCS: 99212 ==